=== PATIENT | female | born 1960 | race Caucasian/White ===

== ENCOUNTER 2016-02-28 22:08 | Emergency (ER) | payer OTHER ==
[~2016-02-28] VITALS: Ht 165.1 cm; Wt 145.0 kg
[~2016-02-28 22:08] MED LIST: ADVAIR 250/501 DISK IH; ADVAIR HFA120 INHALA IH; ADVIL200 MG PO; ALBUTEROL2.5 MG/3 M IH; AMLODIPINE BESY10 MG PO; APRESOLINE50 MG PO; ASPIR-LOW81 MG PO; ASPIRIN81 M2 PO; AUGMENTIN875 MG PO; BUPROPION HCL75 MG PO; BUSPAR10 MG PO; CARDIZEM CD,CA240 MG PO; CARDIZEM CD300 MG PO; CARVEDILOL25 MG PO; CARVEDILOL3.125 MG PO; CARVEDILOL6.25 MG PO; CEFTIN500 MG PO; CEFUROXIME500 MG PO; CLONAZEPAM1 MG PO; CLONIDINE HCL0.2 MG PO; CLONIDINE HCL0.3 MG PO; CLONIDINE1 EACH TD; COUMADIN2.5 MG PO; COZAAR25 MG PO; COZAAR50 MG PO; DIGOXIN125 MCG PO; DUONEB 2.5-0.5 M3 ML AEROSOL; ENDOCET 5-3251 EACH PO; FAMOTIDINE20 MG PO; FUROSEMIDE40 MG PO; GLIPIZIDE5 MG PO; GUAIFENESIN WI120 M1 PO; HYDRALAZINE HCL50 MG PO; IPRATR-ALBUTEROL3 ML AEROSOL; JANUVIA100 MG PO; KEFLEX500 MG PO; LASIX40 MG PO; LEVAQUIN500 MG PO; LEVEMIR FL100 UNITS/ SC; LEVEMIR100 UNIT/2 SC; LEVOFLOXACIN500 MG PO; LEXAPRO20 MG PO; LIPITOR40 MG PO; LISINOPRIL40 MG PO; LO-DOSE ASPIRIN81 M1 PO; LOSARTAN-HCTZ1 EAC1 PO; LUNESTA2 MG PO; MEDROL DOSEPAK4 MG PO; METFORMIN HCL500 MG PO; NORVASC10 MG PO; NOVOLOG PE100 UNITS/ SC; NYSTOP60 GM TP; ONDANSETRON ODT4 MG PO; OPANA ER10 MG PO; OPANA ER15 MG PO; OPANA ER5 MG PO; PAXIL20 MG PO; PERCOCET 10/1 TABLET PO; PERCOCET 5/31 TABLET PO; PERCOCET 7.51 TABLET PO; PRAVACHOL40 MG PO; PRAVASTATIN SOD40 MG PO; PREDNISONE20 MG PO; PREDNISONE5 MG PO; PROMETHAZINE HC25 M1 PO; PROVENTIL,2.5 MG/3 M IH; PULMICORT0.5 MG/21 AEROSOL; SPIRIVA RESPIMAT4 G1 IH; SSD25GM TP; TYLENOL WITH C1 EACH PO; VENTOLIN HFA18 GM IH; XANAX0.5 MG PO; XARELTO15 MG PO; XARELTO20 MG PO; ZOFRAN4 MG PO
[2016-02-28 22:27] VITALS: BP 185/104
[2016-02-28 23:01] LABS: HEMATOCRIT 40.9 % (36.0-46.0); MCH 30.5 PG (29.0-34.0); MCV 95.1 FL (83-99); MEAN PLAT.VOLUME 10.3 uM^3 (9.5-12.4); PLATELET COUNT 182 K/uL (156-360); RBC DIS.WIDTH-CV 14.1 % (11.8-14.6); RBC DIS.WIDTH-SD 46.2 % (39-53); WHITE BLOOD COUNT 7.1 K/uL (4.1-10.2)
[2016-02-28 23:47] LABS: CHLORIDE 107 mEq/L (99-109); POTASSIUM 4.5 mEq/L (3.7-5.4); SODIUM 144 mEq/L (136-147)
[2016-02-28 23:49] LABS: GLUCOSE 133 mg/dL (70-99)
[2016-02-28 23:50] LABS: ANION GAP 10 MEQ/L (2-14)
[2016-02-28 23:53] LABS: GFR ESTIMATE (CALCULATED) 42 mL/min/
[2016-02-28 23:54] LABS: UREA NITROGEN (BUN) 22 mg/dL (9-23)
== END 2016-02-29 03:00 | disposition left against medical advice (07) ==
LOC: EME 22:08
DX: R09.89 Other specified symptoms and signs involving the circulatory and respiratory systems (principal); Z53.21 Procedure and treatment not carried out due to patient leaving prior to being seen by health care provider
CPT/HCPCS: 80048; 85027

== ENCOUNTER 2016-11-07 00:05 | Inpatient (IN) | payer OTHER ==
[~2016-11-07] VITALS: Ht 165.1 cm; Wt 143.1 kg
[2016-11-07 01:41] LABS: HEMATOCRIT 50.9 % (36.0-46.0); MCH 29.4 PG (29.0-34.0); MCHC 31.2 G/DL (30.0-36.0); MCV 94.1 FL (83-99); MEAN PLAT.VOLUME 10.7 uM^3 (9.5-12.4); PLATELET COUNT 146 K/uL (156-360); RBC DIS.WIDTH-CV 13.5 % (11.8-14.6); RBC DIS.WIDTH-SD 46.5 % (39-53); RED BLOOD COUNT 5.41 M/uL (3.80-5.20); WHITE BLOOD COUNT 6.9 K/uL (4.1-10.2)
[2016-11-07 01:54] LABS: CHLORIDE 105 mEq/L (99-109); POTASSIUM 4.8 mEq/L (3.7-5.4); SODIUM 139 mEq/L (136-147)
[2016-11-07 01:56] LABS: GLUCOSE 118 mg/dL (70-99)
[2016-11-07 01:58] LABS: ANION GAP 10 MEQ/L (2-14)
[2016-11-07 02:00] LABS: GFR ESTIMATE (CALCULATED) > 59 mL/min/
[2016-11-07 02:01] LABS: UREA NITROGEN (BUN) 25 mg/dL (9-23)
[2016-11-07 04:06] VITALS: BP 190/114
[2016-11-07 04:20] VITALS: BP 142/80
[2016-11-07 08:06] LABS: POINT-OF-CARE METER ID UU14162513
[2016-11-07 08:15] VITALS: BP 140/74
[2016-11-07 11:47] VITALS: BP 136/72
[2016-11-07 12:03] LABS: POINT-OF-CARE METER ID UU13113831
[2016-11-07 15:54] VITALS: BP 139/74
[2016-11-07 17:39] LABS: POINT-OF-CARE METER ID UU14162513
[2016-11-07 22:05] LABS: POINT-OF-CARE METER ID UU13113700
[2016-11-07 23:20] LABS: POINT-OF-CARE METER ID UU13113831
[2016-11-08 00:03] VITALS: BP 130/81
[2016-11-08 04:19] VITALS: BP 109/67
[2016-11-08 05:33] LABS: EOSINOPHIL (%) 2.4 % (0-5); EOSINOPHIL COUNT 0.2 K/uL (0-0.3); IMMATURE GRANULOCYTE (%) 0.3 % (0.0-0.7); INSTRUMENT ABS NEUTROPHIL CT 4.1 K/uL; LYMPHOCYTE COUNT 2.1 K/uL (1.0-2.8); MCH 29.7 PG (29.0-34.0); MCHC 30.4 G/DL (30.0-36.0); MCV 97.6 FL (83-99); MEAN PLAT.VOLUME 11.5 uM^3 (9.5-12.4); MONOCYTE (%) 10.4 % (3-12); MONOCYTE COUNT 0.7 K/uL (0-0.8); NEUTROPHIL (%) 57.6 % (45-76); NEUTROPHIL COUNT 4.1 K/uL (1.8-6.4); PLATELET COUNT 146 K/uL (156-360); RBC DIS.WIDTH-CV 13.7 % (11.8-14.6); RBC DIS.WIDTH-SD 48.7 % (39-53); RED BLOOD COUNT 4.92 M/uL (3.80-5.20); WHITE BLOOD COUNT 7.1 K/uL (4.1-10.2)
[2016-11-08 08:21] LABS: POINT-OF-CARE METER ID UU13113831
[2016-11-08] MEDS ORDERED: DOXYCYCLINE HY100 MG PO (11:55)
[2016-11-08 12:26] LABS: POINT-OF-CARE METER ID UU13113700
[2016-11-08 12:45] VITALS: BP 117/61
[2016-11-08 17:22] LABS: POINT-OF-CARE METER ID UU13113700
[2016-11-08 18:00] VITALS: BP 135/61
[2016-11-08 21:30] LABS: POINT-OF-CARE METER ID UU13113831
[2016-11-09 01:07] VITALS: BP 127/65
[2016-11-09 04:49] VITALS: BP 96/62
[2016-11-09 08:03] LABS: POINT-OF-CARE METER ID UU13113700
[2016-11-09] MEDS ORDERED: OXYGEN MC (09:51)
[2016-11-09 11:23] VITALS: BP 100/64
[2016-11-09 12:20] LABS: POINT-OF-CARE METER ID UU13113700
[2016-11-09 15:30] VITALS: BP 123/75
[2016-11-09 19:27] VITALS: BP 166/84
[2016-11-09 21:36] LABS: POINT-OF-CARE METER ID UU13113831
[2016-11-09 23:45] VITALS: BP 135/65
[2016-11-10 03:24] VITALS: BP 139/78
[2016-11-10] MEDS ORDERED: OXYGEN MC (06:45)
[2016-11-10 09:19] VITALS: BP 169/79
[2016-11-10 11:58] VITALS: BP 153/74
[2016-11-10 12:42] LABS: POINT-OF-CARE METER ID UU13113700
== END 2016-11-10 16:22 | disposition home or self-care (01) | DRG 603 ==
LOC: EME 00:05 → ENRESERV 02:51 → 5WEST 03:15 → EDOF 03:15 → ENRESERV 03:24 → 5WEST 03:49 → ENRESERV 09:49 → CANRESERV 09:49 → 5WEST 09:51
PROVIDERS: Emergency Medicine; Hospitalist; Physician Assistant Medical
DX: L03.116 Cellulitis of left lower limb (principal); Z68.43 Body mass index [BMI] 50.0-59.9, adult; E66.2 Morbid (severe) obesity with alveolar hypoventilation; I13.0 Hypertensive heart and chronic kidney disease with heart failure and stage 1 through stage 4 chronic kidney disease, or unspecified chronic kidney disease; I50.32 Chronic diastolic (congestive) heart failure; J96.11 Chronic respiratory failure with hypoxia; N18.2 Chronic kidney disease, stage 2 (mild); E11.22 Type 2 diabetes mellitus with diabetic chronic kidney disease; E78.5 Hyperlipidemia, unspecified; I48.0 Paroxysmal atrial fibrillation; G89.29 Other chronic pain; J44.9 Chronic obstructive pulmonary disease, unspecified; I87.2 Venous insufficiency (chronic) (peripheral); I87.8 Other specified disorders of veins; F41.9 Anxiety disorder, unspecified; K21.9 Gastro-esophageal reflux disease without esophagitis; I25.10 Atherosclerotic heart disease of native coronary artery without angina pectoris; Z79.4 Long term (current) use of insulin; Z99.81 Dependence on supplemental oxygen; Z83.3 Family history of diabetes mellitus; Z82.49 Family history of ischemic heart disease and other diseases of the circulatory system; Z86.718 Personal history of other venous thrombosis and embolism; Z87.891 Personal history of nicotine dependence; Z93.0 Tracheostomy status; I25.2 Old myocardial infarction
CPT/HCPCS: 80048; 82948; 83605; 85025; 85027; 87040; 93970; 94640; 94640 76; 94799; 99202; 99281; 99285; J0690; J0696; J1170; J1650; J2270; J7050

== ENCOUNTER 2017-02-16 00:08 | Inpatient (IN) | payer OTHER ==
[~2017-02-16] VITALS: Ht 165.1 cm; Wt 143.1 kg
[~2017-02-16 00:08] MED LIST changes: +ADVAIR 500/501 DISK IH; +DOXYCYCLINE HY100 MG PO; +GLIPIZIDE XL10 MG PO; -GLIPIZIDE5 MG PO; +OXYGEN MC; +SPIRIVA RESPIMAT4 GM IH
[2017-02-16 01:25] LABS: HEMATOCRIT 41.5 % (36.0-46.0); HEMOGLOBIN 13.1 G/DL (11.9-15.5); MCHC 31.6 G/DL (30.0-36.0); RBC DIS.WIDTH-CV 13.4 % (11.8-14.6); RBC DIS.WIDTH-SD 46.8 % (39-53); RED BLOOD COUNT 4.37 M/uL (3.80-5.20); WHITE BLOOD COUNT 4.7 K/uL (4.1-10.2)
[2017-02-16 01:29] LABS: PLATELET COUNT 142 K/uL (156-360)
[2017-02-16 01:34] LABS: PTT 29.3 SEC (25-37)
[2017-02-16 01:36] LABS: ALBUMIN 3.8 g/dL (3.2-4.8); CHLORIDE 107 mEq/L (99-109); POTASSIUM 4.4 mEq/L (3.7-5.4); SODIUM 139 mEq/L (136-147)
[2017-02-16 01:39] LABS: GLUCOSE 143 mg/dL (70-99); TOTAL PROTEIN 7.1 g/dL (6.4-8.3)
[2017-02-16 01:41] LABS: TOTAL BILIRUBIN 0.4 mg/dL (0.0-1.0)
[2017-02-16 01:42] LABS: ALKALINE PHOSPHATASE 138 IU/L (3-129); CREATININE 1.2 mg/dL (0.6-1.3); GFR ESTIMATE (CALCULATED) 50 mL/min/
[2017-02-16 01:43] LABS: UREA NITROGEN (BUN) 22 mg/dL (9-23)
[2017-02-16 01:44] LABS: AST (GOT) 15 IU/L (2-34)
[2017-02-16 01:45] LABS: ALT (GPT) 22 IU/L (3-49)
[2017-02-16 01:46] LABS: LIPASE 16 U/L (1.0-51.0)
[2017-02-16 01:47] LABS: TROP-I INTERPRETATION NEGATIVE; TROPONIN-I 0.04 ng/mL (0.0-0.30)
[2017-02-16] MEDS ORDERED: TRADJENTA5 MG PO (12:39)
[2017-02-16] MEDS ORDERED: DILTIAZEM 24HR240 MG PO (12:42)
[2017-02-16] MEDS ORDERED: XARELTO20 MG PO (12:44)
[2017-02-16] MEDS ORDERED: CYANOCOBALAM1000 MCG PO (12:45)
[2017-02-16] MEDS ORDERED: DESYREL100 MG PO (12:45)
[2017-02-16] MEDS ORDERED: ERGOCALCIF50000 UNIT PO (12:45)
[2017-02-16] MEDS ORDERED: BRINTELLIX20 MG PO (12:46)
[2017-02-16] MEDS ORDERED: GABAPENTIN400 MG PO (12:46)
[2017-02-16] MEDS ORDERED: ALBUTEROL SULFAT2 MG PO (12:52)
[2017-02-16 18:21] VITALS: BP 209/101
[2017-02-16 23:42] VITALS: BP 212/102
[2017-02-17] VITALS (8 sets, daily range): BP systolic 142–182; BP diastolic 78–98
[2017-02-17 06:48] LABS: CHLORIDE 102 MEQ/L (99-109); CREATININE 1.4 MG/DL (0.6-1.3); GFR ESTIMATE (CALCULATED) 41 mL/min/; SODIUM 136 MEQ/L (136-147); UREA NITROGEN (BUN) 32 mg/dL (9-23)
[2017-02-17 06:54] LABS: GLUCOSE 405 mg/dL (70-99); POTASSIUM 5.3 MEQ/L (3.7-5.4)
[2017-02-17 07:07] LABS: HEMATOCRIT 40.3 % (36.0-46.0); HEMOGLOBIN 12.6 G/DL (11.9-15.5); MCH 29.2 PG (29.0-34.0); MCHC 31.3 G/DL (30.0-36.0); MCV 93.5 FL (83-99); PLATELET COUNT 181 K/uL (156-360); RBC DIS.WIDTH-CV 13.3 % (11.8-14.6); RBC DIS.WIDTH-SD 46.2 % (39-53); RED BLOOD COUNT 4.31 M/uL (3.80-5.20); WHITE BLOOD COUNT 5.9 K/uL (4.1-10.2)
[2017-02-18 04:11] VITALS: BP 131/65
[2017-02-18 05:09] LABS: BASOPHIL (%) 0 % (0-1); EOSINOPHIL (%) 0 % (0-5); HEMATOCRIT 39.5 % (36.0-46.0); IMMATURE GRANULOCYTE (%) 0.5 % (0.0-0.7); LYMPHOCYTE (%) 7.2 % (15-42); LYMPHOCYTE COUNT 0.7 K/uL (1.0-2.8); MCH 28.8 PG (29.0-34.0); MCHC 30.4 G/DL (30.0-36.0); MCV 94.7 FL (83-99); MONOCYTE (%) 4.6 % (3-12); MONOCYTE COUNT 0.5 K/uL (0-0.8); NEUTROPHIL (%) 87.7 % (45-76); NEUTROPHIL COUNT 8.9 K/uL (1.8-6.4); PLATELET COUNT 158 K/uL (156-360); RBC DIS.WIDTH-CV 13.5 % (11.8-14.6); RBC DIS.WIDTH-SD 47.3 % (39-53); RED BLOOD COUNT 4.17 M/uL (3.80-5.20); WHITE BLOOD COUNT 10.1 K/uL (4.1-10.2)
[2017-02-18 05:40] LABS: CHLORIDE 94 MEQ/L (99-109); CREATININE 1.2 MG/DL (0.6-1.3); GFR ESTIMATE (CALCULATED) 50 mL/min/; GLUCOSE 397 mg/dL (70-99); MAGNESIUM 1.8 mg/dl (1.3-2.7); POTASSIUM 4.7 MEQ/L (3.7-5.4); UREA NITROGEN (BUN) 41 mg/dL (9-23)
[2017-02-18 05:41] LABS: SODIUM 124 MEQ/L (136-147)
[2017-02-18 09:11] VITALS: BP 132/72
[2017-02-18 16:01] VITALS: BP 147/73
[2017-02-18 19:00] VITALS: BP 155/89
[2017-02-19 01:07] VITALS: BP 174/82
[2017-02-19 04:43] VITALS: BP 126/74
[2017-02-19 08:16] VITALS: BP 129/71
[2017-02-19 10:44] LABS: HEMATOCRIT 42.2 % (36.0-46.0); HEMOGLOBIN 12.8 G/DL (11.9-15.5); MCHC 30.3 G/DL (30.0-36.0); MCV 95.5 FL (83-99); PLATELET COUNT 174 K/uL (156-360); RBC DIS.WIDTH-CV 13.6 % (11.8-14.6); RBC DIS.WIDTH-SD 47.9 % (39-53); RED BLOOD COUNT 4.42 M/uL (3.80-5.20); WHITE BLOOD COUNT 10.2 K/uL (4.1-10.2)
[2017-02-19 11:19] LABS: CREATININE 1.3 MG/DL (0.6-1.3); GFR ESTIMATE (CALCULATED) 45 mL/min/; GLUCOSE 290 mg/dL (70-99); POTASSIUM 5.2 MEQ/L (3.7-5.4); UREA NITROGEN (BUN) 43 mg/dL (9-23)
[2017-02-19 11:26] LABS: CHLORIDE 106 MEQ/L (99-109); SODIUM 136 MEQ/L (136-147)
[2017-02-19 12:21] VITALS: BP 134/87
[2017-02-19 16:33] VITALS: BP 170/93
[2017-02-19 19:45] VITALS: BP 159/74
[2017-02-20 00:14] VITALS: BP 151/77
[2017-02-20 03:59] VITALS: BP 122/63
[2017-02-20 12:49] VITALS: BP 153/69
[2017-02-20 17:23] VITALS: BP 160/76
[2017-02-20 21:30] VITALS: BP 140/84
[2017-02-21 00:15] VITALS: BP 169/81
[2017-02-21 05:20] VITALS: BP 139/76
[2017-02-21 09:22] VITALS: BP 142/72
[2017-02-21 11:56] VITALS: BP 148/69
[2017-02-21 20:00] VITALS: BP 134/70
[2017-02-22 00:24] VITALS: BP 166/71
[2017-02-22 04:18] VITALS: BP 136/76
[2017-02-22 08:07] VITALS: BP 139/74
[2017-02-22 12:00] VITALS: BP 134/78
[2017-02-22 16:31] VITALS: BP 145/72
[2017-02-22 20:00] VITALS: BP 148/88
[2017-02-23 00:07] VITALS: BP 140/75
[2017-02-23 04:31] VITALS: BP 121/70
[2017-02-23 09:11] VITALS: BP 90/49
[2017-02-23 11:06] VITALS: BP 153/76
[2017-02-23 15:04] VITALS: BP 159/83
[2017-02-23 20:02] VITALS: BP 137/72
[2017-02-24 01:14] VITALS: BP 142/71
[2017-02-24 05:03] VITALS: BP 116/59
[2017-02-24 07:45] VITALS: BP 113/57
[2017-02-24 11:53] VITALS: BP 130/62
[2017-02-24] MEDS ORDERED: MUCINEX600 MG PO (12:10)
[2017-02-24] MEDS ORDERED: PREDNISONE10 MG PO (12:14)
[2017-02-24] MEDS ORDERED: OSELTAMIVIR PHO75 MG PO (12:16)
[2017-02-24 15:40] VITALS: BP 149/73
== END 2017-02-24 20:56 | disposition home health service (06) | DRG 194 ==
LOC: EME 00:08 → EDOF 03:34 → 5WEST 03:34 → ENRESERV 03:39 → 5WEST 18:02
PROVIDERS: Emergency Medicine; Hospitalist; Internal Medicine; Internal Medicine Pulmonary Disease; Nurse Practitioner Adult Health; Physician Assistant
DX: J10.1 Influenza due to other identified influenza virus with other respiratory manifestations (principal); J44.0 Chronic obstructive pulmonary disease with (acute) lower respiratory infection; J20.9 Acute bronchitis, unspecified; J44.1 Chronic obstructive pulmonary disease with (acute) exacerbation; I48.0 Paroxysmal atrial fibrillation; E78.5 Hyperlipidemia, unspecified; E66.2 Morbid (severe) obesity with alveolar hypoventilation; I25.10 Atherosclerotic heart disease of native coronary artery without angina pectoris; I13.0 Hypertensive heart and chronic kidney disease with heart failure and stage 1 through stage 4 chronic kidney disease, or unspecified chronic kidney disease; E11.22 Type 2 diabetes mellitus with diabetic chronic kidney disease; E11.65 Type 2 diabetes mellitus with hyperglycemia; G89.4 Chronic pain syndrome; K43.9 Ventral hernia without obstruction or gangrene; I89.0 Lymphedema, not elsewhere classified; F32.9 Major depressive disorder, single episode, unspecified; F41.9 Anxiety disorder, unspecified; T38.0X5A Adverse effect of glucocorticoids and synthetic analogues, initial encounter; N18.3 Chronic kidney disease, stage 3 (moderate); F11.20 Opioid dependence, uncomplicated; G62.9 Polyneuropathy, unspecified; I16.0 Hypertensive urgency; I50.9 Heart failure, unspecified; I87.2 Venous insufficiency (chronic) (peripheral); K21.9 Gastro-esophageal reflux disease without esophagitis; Z93.0 Tracheostomy status; I25.2 Old myocardial infarction; Z79.01 Long term (current) use of anticoagulants; Z83.3 Family history of diabetes mellitus; Z86.718 Personal history of other venous thrombosis and embolism; Z87.891 Personal history of nicotine dependence; Z86.73 Personal history of transient ischemic attack (TIA), and cerebral infarction without residual deficits; Z86.711 Personal history of pulmonary embolism; Z99.81 Dependence on supplemental oxygen; Z82.49 Family history of ischemic heart disease and other diseases of the circulatory system
CPT/HCPCS: 71045; 80048; 80053; 82948; 83605; 83690; 83735; 83880; 84484; 85025; 85027; 85610; 85730; 87040; 87070; 87077; 87205; 87502; 93005; 94640; 94640 76; 94799; 97530 GO; 97530 GP; 99202; 99281; 99285; J0456; J1815; J1940; J1956; J2270; J2920; J2930; J7040; J7512; J7608

== ENCOUNTER 2017-02-28 17:27 | Inpatient (IN) | payer OTHER ==
[~2017-02-28] VITALS: Ht 167.6 cm; Wt 97.0 kg
[~2017-02-28 17:27] MED LIST changes: +ALBUTEROL SULFAT2 MG PO; +BRINTELLIX20 MG PO; +CYANOCOBALAM1000 MCG PO; +DESYREL100 MG PO; +DILTIAZEM 24HR240 MG PO; +ERGOCALCIF50000 UNIT PO; +GABAPENTIN400 MG PO; +MUCINEX600 MG PO; +OSELTAMIVIR PHO75 MG PO; +PREDNISONE10 MG PO; +TRADJENTA5 MG PO
[2017-02-28 18:03] LABS: BICARBONATE 20.3 mEq/L (22-26); CARBOXY HGB 4.7 % (0-5); METHEMOGLOBIN 0 % (0-1.5); PO2 338 mm Hg (80-100)
[2017-02-28 18:04] LABS: COMMENTS - BLOOD GASES A+C+; DEVICE 980 PB; FI02 100 %; MODE AC; PCO2 64 mm Hg (35-45); PEEP 8 CM/H20; SITE RR; pH 7.11 (7.35-7.45)
[2017-02-28 18:08] LABS: MECHANICAL RATE 20 resp/min; TIDAL VOLUME 400 ML; TOTAL RESP RATE 30 resp/min
[2017-02-28 18:13] LABS: HEMATOCRIT 45.1 % (36.0-46.0); HEMOGLOBIN 13.5 G/DL (11.9-15.5); MCH 29.5 PG (29.0-34.0); MCHC 29.9 G/DL (30.0-36.0); MCV 98.5 FL (83-99); RBC DIS.WIDTH-CV 13.2 % (11.8-14.6); RBC DIS.WIDTH-SD 47.7 % (39-53); RED BLOOD COUNT 4.58 M/uL (3.80-5.20); WHITE BLOOD COUNT 22.6 K/uL (4.1-10.2)
[2017-02-28 18:21] LABS: PTT 28.1 SEC (25-37)
[2017-02-28 18:25] LABS: ALBUMIN 3.7 g/dL (3.2-4.8); CHLORIDE 103 mEq/L (99-109); POTASSIUM 5.7 mEq/L (3.7-5.4); SODIUM 138 mEq/L (136-147)
[2017-02-28 18:26] LABS: MAGNESIUM 2.2 mg/dL (1.3-2.7)
[2017-02-28 18:28] LABS: GLUCOSE 374 mg/dL (70-99); TOTAL PROTEIN 6.6 g/dL (6.4-8.3)
[2017-02-28 18:30] LABS: TOTAL BILIRUBIN 0.5 mg/dL (0.0-1.0)
[2017-02-28 18:31] LABS: ALKALINE PHOSPHATASE 123 IU/L (3-129); CREATININE 1.7 mg/dL (0.6-1.3); GFR ESTIMATE (CALCULATED) 33 mL/min/
[2017-02-28 18:32] LABS: UREA NITROGEN (BUN) 41 mg/dL (9-23)
[2017-02-28 18:33] LABS: AST (GOT) 75 IU/L (2-34)
[2017-02-28 18:34] LABS: ALT (GPT) 63 IU/L (3-49)
[2017-02-28 18:40] LABS: TROP-I INTERPRETATION NEGATIVE; TROPONIN-I 0.02 ng/mL (0.0-0.30)
[2017-02-28 18:58] LABS: PLATELET COUNT UNABLE TO REPORT K/uL (156-360)
[2017-02-28 19:17] LABS: ATYPICAL LYMPHOCYTE 3.9 %; BAND NEUTROPHILS 4.8 % (0-8.0); BASOPHILS 0.4 %; EOSINOPHIL ABS CT 0.2; EOSINOPHILS 0.9 % (0-5.0); LYMPHOCYTES 31.9 % (15.0-45.0); METAMYELOCYTES 0.9 %; MONOCYTES 4.4 % (0-9.0); PLAT.SUFFICIENCY ADEQUATE; SEG.NEUTROPHILS 52.8 % (46.0-76.0)
[2017-02-28 20:16] LABS: APPEARANCE SL.HAZY ((CLEAR)); BILIRUBIN NEGATIVE; BLOOD SMALL; COLOR YELLOW ((YELLOW)); GLUCOSE (STRIP) 50; KETONES NEGATIVE; LEUKOCYTES TRACE; NITRITE NEGATIVE; PROTEIN (STRIP) >=500; SPECIFIC GRAVITY 1.013 (1.000-1.030); UROBILINOGEN 0.2 MG/DL (0.2-1.0)
[2017-02-28 20:21] LABS: BACTERIA RARE /HPF; EPITHELIAL CELLS RARE /HPF; MUCUS TRACE /LPF; RED BLOOD CELLS 15-20 /HPF (0-5); UCUL ADDED? YES; WHITE BLOOD CELLS 30-40 /HPF (0-5)
[2017-02-28 20:24] LABS: AMPHETAMINE NEGATIVE (500 ng/mL); BARBITURATES NEGATIVE (200 ng/mL); BENZODIAZEPINES NEGATIVE (150 ng/mL); BUPRENORPHINE NEGATIVE (10 ng/mL); COCAINE NEGATIVE (150 ng/mL); METHADONE NEGATIVE (200 ng/mL); METHAMPHETAMINE NEGATIVE (500 ng/mL); OPIATES (MORPHINE) NEGATIVE (100 ng/mL); OXYCODONE PRESUMPTIVE POSITIVE (100 ng/mL); PHENCYCLIDINE NEGATIVE (25 ng/mL); PROPOXYPHENE NEGATIVE (300 ng/mL); THC CANNABINOIDS NEGATIVE (50 ng/mL); TRICYCLIC ANTIDEPRESSANTS NEGATIVE (300 ng/mL)
[2017-02-28 20:30] VITALS: BP 90/74
[2017-02-28 20:54] VITALS: BP 126/67
[2017-02-28 21:00] VITALS: BP 101/64
[2017-02-28 21:30] VITALS: BP 114/69
[2017-02-28 21:56] LABS: BASE EXCESS 0.8 mEq/L (-3 to +3); BICARBONATE 28.5 mEq/L (22-26); CARBOXY HGB 3.9 % (0-5); COMMENTS - BLOOD GASES C+; DEVICE VENT; FI02 50 %; METHEMOGLOBIN 1.7 % (0-1.5); MODE SPONT; PCO2 58 mm Hg (35-45); PO2 58 mm Hg (80-100); PRES. SUPPORT 10 CM/H2O; SITE RR; TOTAL RESP RATE 25 resp/min
[2017-02-28 21:57] LABS: PEEP 8 CM/H20
[2017-02-28 22:00] VITALS: BP 113/77
[2017-02-28 23:00] VITALS: BP 111/70
[2017-03-01] VITALS (17 sets, daily range): BP systolic 99–182; BP diastolic 64–135
[2017-03-01 06:41] LABS: CHLORIDE 102 MEQ/L (99-109); CREATININE 1.4 MG/DL (0.6-1.3); GFR ESTIMATE (CALCULATED) 41 mL/min/; POTASSIUM 5.9 MEQ/L (3.7-5.4); SODIUM 136 MEQ/L (136-147); UREA NITROGEN (BUN) 43 mg/dL (9-23)
[2017-03-01 06:49] LABS: GLUCOSE 161 mg/dL (70-99)
[2017-03-01 06:50] LABS: BASOPHIL (%) 0.2 % (0-1); BASOPHIL COUNT 0.1 K/uL (0-0.1); EOSINOPHIL (%) 0.2 % (0-5); HEMATOCRIT 41.3 % (36.0-46.0); HEMOGLOBIN 12.8 G/DL (11.9-15.5); IMMATURE GRANULOCYTE (%) 1.7 % (0.0-0.7); LYMPHOCYTE (%) 5.3 % (15-42); LYMPHOCYTE COUNT 1.2 K/uL (1.0-2.8); MCH 30.5 PG (29.0-34.0); MCV 98.3 FL (83-99); MONOCYTE (%) 6.6 % (3-12); MONOCYTE COUNT 1.4 K/uL (0-0.8); NEUTROPHIL COUNT 18.9 K/uL (1.8-6.4); RBC DIS.WIDTH-CV 13.4 % (11.8-14.6); RBC DIS.WIDTH-SD 48.1 % (39-53); WHITE BLOOD COUNT 21.9 K/uL (4.1-10.2)
[2017-03-01 07:20] LABS: PLAT.SUFFICIENCY ADEQUATE
[2017-03-01 08:15] LABS: PLATELET COUNT 202 K/uL (156-360)
[2017-03-02] VITALS (23 sets, daily range): BP systolic 83–152; BP diastolic 47–128
[2017-03-02 09:55] LABS: HEMOGLOBIN A1c (GLYCOHEMOGLOB) 7.5 % (Below 5.7)
[2017-03-03] VITALS (23 sets, daily range): BP systolic 98–150; BP diastolic 62–105
[2017-03-03 05:55] LABS: HEMATOCRIT 31.9 % (36.0-46.0); MCH 29.4 PG (29.0-34.0); MCHC 30.1 G/DL (30.0-36.0); MCV 97.9 FL (83-99); PLATELET COUNT 145 K/uL (156-360); RBC DIS.WIDTH-CV 13.3 % (11.8-14.6); RBC DIS.WIDTH-SD 47.7 % (39-53)
[2017-03-03 06:10] LABS: CHLORIDE 106 MEQ/L (99-109); GLUCOSE 155 mg/dL (70-99); MAGNESIUM 1.7 mg/dl (1.3-2.7); PHOSPHORUS 3.6 mg/dL (2.5-4.9); SODIUM 140 MEQ/L (136-147); UREA NITROGEN (BUN) 48 mg/dL (9-23)
[2017-03-03 06:17] LABS: GFR ESTIMATE (CALCULATED) 27 mL/min/; POTASSIUM 4.6 MEQ/L (3.7-5.4)
[2017-03-03 06:23] LABS: HEMOGLOBIN 9.6 G/DL (11.9-15.5); RED BLOOD COUNT 3.26 M/uL (3.80-5.20)
[2017-03-04] VITALS (24 sets, daily range): BP systolic 93–170; BP diastolic 55–105
[2017-03-04 06:45] LABS: CHLORIDE 106 MEQ/L (99-109); GFR ESTIMATE (CALCULATED) 45 mL/min/; GLUCOSE 124 mg/dL (70-99); POTASSIUM 4.8 MEQ/L (3.7-5.4); SODIUM 141 MEQ/L (136-147); UREA NITROGEN (BUN) 35 mg/dL (9-23)
[2017-03-04 06:56] LABS: CREATININE 1.3 MG/DL (0.6-1.3)
[2017-03-05] VITALS (25 sets, daily range): BP systolic 0–144; BP diastolic 0–95
[2017-03-05 15:38] LABS: BASOPHIL (%) 0 % (0-1); EOSINOPHIL (%) 0 % (0-5); HEMATOCRIT 31.9 % (36.0-46.0); HEMOGLOBIN 9.7 G/DL (11.9-15.5); IMMATURE GRANULOCYTE (%) 0.6 % (0.0-0.7); LYMPHOCYTE COUNT 0.3 K/uL (1.0-2.8); MCH 29.5 PG (29.0-34.0); MCHC 30.4 G/DL (30.0-36.0); MONOCYTE (%) 2.2 % (3-12); MONOCYTE COUNT 0.1 K/uL (0-0.8); NEUTROPHIL (%) 92.2 % (45-76); NEUTROPHIL COUNT 4.6 K/uL (1.8-6.4); PLATELET COUNT 126 K/uL (156-360); RBC DIS.WIDTH-CV 12.7 % (11.8-14.6); RBC DIS.WIDTH-SD 45.6 % (39-53); RED BLOOD COUNT 3.29 M/uL (3.80-5.20)
[2017-03-05 15:45] LABS: BASE EXCESS 0.5 mEq/L (-3 to +3); BICARBONATE 27.6 mEq/L (22-26); CARBOXY HGB 1.9 % (0-5); METHEMOGLOBIN 1.5 % (0-1.5); PCO2 56 mm Hg (35-45); PO2 60 mm Hg (80-100)
[2017-03-05 15:46] LABS: COMMENTS - BLOOD GASES A+C+; DEVICE 980 PB; FI02 60 %; MECHANICAL RATE 20 resp/min; MODE AC; PEEP 5 CM/H20; SITE LR; TIDAL VOLUME 400 ML; TOTAL RESP RATE 20 resp/min
[2017-03-05 15:47] LABS: ALBUMIN 3.3 G/DL (3.2-4.8); CHLORIDE 104 MEQ/L (99-109); MAGNESIUM 1.6 mg/dl (1.3-2.7); SODIUM 137 MEQ/L (136-147); TOTAL BILIRUBIN 0.5 MG/DL (0.0-1.0)
[2017-03-05 15:54] LABS: ALKALINE PHOSPHATASE 70 IU/L (3-129); ALT (GPT) 12 IU/L (3-49); AST (GOT) 8 IU/L (2-34); CREATININE 1.1 MG/DL (0.6-1.3); GFR ESTIMATE (CALCULATED) 55 mL/min/; GLUCOSE 221 mg/dL (70-99); PHOSPHORUS 3.6 mg/dL (2.5-4.9); TOTAL PROTEIN 6.4 G/DL (6.4-8.3); UREA NITROGEN (BUN) 38 mg/dL (9-23)
[2017-03-06] VITALS (18 sets, daily range): BP systolic 85–149; BP diastolic 53–97
[2017-03-06 05:28] LABS: BASOPHIL (%) 0.2 % (0-1); EOSINOPHIL (%) 0.2 % (0-5); HEMATOCRIT 31.3 % (36.0-46.0); HEMOGLOBIN 9.6 G/DL (11.9-15.5); IMMATURE GRANULOCYTE (%) 0.3 % (0.0-0.7); LYMPHOCYTE (%) 8.8 % (15-42); LYMPHOCYTE COUNT 0.5 K/uL (1.0-2.8); MCH 29.4 PG (29.0-34.0); MCHC 30.7 G/DL (30.0-36.0); MONOCYTE (%) 8.8 % (3-12); MONOCYTE COUNT 0.5 K/uL (0-0.8); NEUTROPHIL (%) 81.7 % (45-76); NEUTROPHIL COUNT 4.9 K/uL (1.8-6.4); PLATELET COUNT 132 K/uL (156-360); RBC DIS.WIDTH-CV 12.7 % (11.8-14.6); RBC DIS.WIDTH-SD 44.6 % (39-53); RED BLOOD COUNT 3.26 M/uL (3.80-5.20)
[2017-03-06 05:47] LABS: BICARBONATE 28.5 mEq/L (22-26); CARBOXY HGB 1.3 % (0-5); METHEMOGLOBIN 1.2 % (0-1.5); PCO2 47 mm Hg (35-45); PO2 71 mm Hg (80-100); SITE LB; pH 7.39 (7.35-7.45)
[2017-03-06 05:48] LABS: COMMENTS - BLOOD GASES C+; DEVICE VENT; FI02 60 %; MECHANICAL RATE 20 resp/min; MODE ACVC; PEEP 5 CM/H20; TIDAL VOLUME 450 ML; TOTAL RESP RATE 23 resp/min
[2017-03-06 05:53] LABS: ALBUMIN 3.2 G/DL (3.2-4.8); ALKALINE PHOSPHATASE 66 IU/L (3-129); ALT (GPT) 12 IU/L (3-49); AST (GOT) 8 IU/L (2-34); CHLORIDE 102 MEQ/L (99-109); CREATININE 1.1 MG/DL (0.6-1.3); GFR ESTIMATE (CALCULATED) 55 mL/min/; GLUCOSE 223 mg/dL (70-99); MAGNESIUM 1.8 mg/dl (1.3-2.7); PHOSPHORUS 3.5 mg/dL (2.5-4.9); POTASSIUM 4.6 MEQ/L (3.7-5.4); SODIUM 137 MEQ/L (136-147); TOTAL BILIRUBIN 0.5 MG/DL (0.0-1.0); TOTAL PROTEIN 5.7 G/DL (6.4-8.3); UREA NITROGEN (BUN) 40 mg/dL (9-23)
[2017-03-07] VITALS (22 sets, daily range): BP systolic 0–143; BP diastolic 0–101
[2017-03-07 06:36] LABS: BASOPHIL (%) 0.2 % (0-1); EOSINOPHIL COUNT 0.1 K/uL (0-0.3); HEMATOCRIT 29.3 % (36.0-46.0); HEMOGLOBIN 8.9 G/DL (11.9-15.5); IMMATURE GRANULOCYTE (%) 0.5 % (0.0-0.7); LYMPHOCYTE (%) 24.4 % (15-42); LYMPHOCYTE COUNT 1.6 K/uL (1.0-2.8); MCH 29.3 PG (29.0-34.0); MCHC 30.4 G/DL (30.0-36.0); MCV 96.4 FL (83-99); MONOCYTE COUNT 0.5 K/uL (0-0.8); NEUTROPHIL (%) 64.9 % (45-76); NEUTROPHIL COUNT 4.3 K/uL (1.8-6.4); PLATELET COUNT 133 K/uL (156-360); RBC DIS.WIDTH-CV 13.1 % (11.8-14.6); RBC DIS.WIDTH-SD 45.8 % (39-53); RED BLOOD COUNT 3.04 M/uL (3.80-5.20); WHITE BLOOD COUNT 6.6 K/uL (4.1-10.2)
[2017-03-07 07:04] LABS: ALBUMIN 3.1 G/DL (3.2-4.8); ALKALINE PHOSPHATASE 63 IU/L (3-129); ALT (GPT) 11 IU/L (3-49); AST (GOT) 9 IU/L (2-34); CHLORIDE 104 MEQ/L (99-109); CREATININE 1.3 MG/DL (0.6-1.3); GFR ESTIMATE (CALCULATED) 45 mL/min/; GLUCOSE 161 mg/dL (70-99); MAGNESIUM 1.8 mg/dl (1.3-2.7); PHOSPHORUS 3.3 mg/dL (2.5-4.9); POTASSIUM 4.6 MEQ/L (3.7-5.4); SODIUM 140 MEQ/L (136-147); TOTAL BILIRUBIN 0.5 MG/DL (0.0-1.0); TOTAL PROTEIN 5.4 G/DL (6.4-8.3); UREA NITROGEN (BUN) 50 mg/dL (9-23)
[2017-03-08] VITALS (21 sets, daily range): BP systolic 84–149; BP diastolic 53–117
[2017-03-08 05:06] LABS: BASOPHIL (%) 0.3 % (0-1); EOSINOPHIL (%) 2.8 % (0-5); EOSINOPHIL COUNT 0.2 K/uL (0-0.3); HEMATOCRIT 29.6 % (36.0-46.0); HEMOGLOBIN 9.4 G/DL (11.9-15.5); IMMATURE GRANULOCYTE (%) 0.5 % (0.0-0.7); LYMPHOCYTE (%) 31.6 % (15-42); LYMPHOCYTE COUNT 1.8 K/uL (1.0-2.8); MCH 30.5 PG (29.0-34.0); MCHC 31.8 G/DL (30.0-36.0); MCV 96.1 FL (83-99); MONOCYTE (%) 10.7 % (3-12); MONOCYTE COUNT 0.6 K/uL (0-0.8); NEUTROPHIL (%) 54.1 % (45-76); NEUTROPHIL COUNT 3.1 K/uL (1.8-6.4); PLATELET COUNT 129 K/uL (156-360); RBC DIS.WIDTH-CV 13.2 % (11.8-14.6); RBC DIS.WIDTH-SD 46.5 % (39-53); RED BLOOD COUNT 3.08 M/uL (3.80-5.20); WHITE BLOOD COUNT 5.7 K/uL (4.1-10.2)
[2017-03-08 05:33] LABS: ALBUMIN 3.2 G/DL (3.2-4.8); ALKALINE PHOSPHATASE 75 IU/L (3-129); ALT (GPT) 9 IU/L (3-49); AST (GOT) 9 IU/L (2-34); CHLORIDE 100 MEQ/L (99-109); CREATININE 1.1 MG/DL (0.6-1.3); GFR ESTIMATE (CALCULATED) 55 mL/min/; GLUCOSE 145 mg/dL (70-99); MAGNESIUM 1.8 mg/dl (1.3-2.7); PHOSPHORUS 3.4 mg/dL (2.5-4.9); POTASSIUM 4.3 MEQ/L (3.7-5.4); SODIUM 134 MEQ/L (136-147); TOTAL BILIRUBIN 0.6 MG/DL (0.0-1.0); TOTAL PROTEIN 5.6 G/DL (6.4-8.3); UREA NITROGEN (BUN) 51 mg/dL (9-23)
[2017-03-09] VITALS (18 sets, daily range): BP systolic 94–181; BP diastolic 59–107
[2017-03-09 05:03] LABS: BASOPHIL (%) 0.3 % (0-1); EOSINOPHIL COUNT 0.2 K/uL (0-0.3); HEMATOCRIT 31.3 % (36.0-46.0); HEMOGLOBIN 9.7 G/DL (11.9-15.5); IMMATURE GRANULOCYTE (%) 0.5 % (0.0-0.7); LYMPHOCYTE (%) 33.3 % (15-42); MCH 30.1 PG (29.0-34.0); MCV 97.2 FL (83-99); MONOCYTE (%) 10.4 % (3-12); MONOCYTE COUNT 0.6 K/uL (0-0.8); NEUTROPHIL (%) 51.5 % (45-76); NEUTROPHIL COUNT 3.1 K/uL (1.8-6.4); PLATELET COUNT 142 K/uL (156-360); RBC DIS.WIDTH-CV 13.2 % (11.8-14.6); RBC DIS.WIDTH-SD 46.8 % (39-53); RED BLOOD COUNT 3.22 M/uL (3.80-5.20)
[2017-03-09 06:25] LABS: ALBUMIN 3.3 G/DL (3.2-4.8); ALKALINE PHOSPHATASE 86 IU/L (3-129); ALT (GPT) 11 IU/L (3-49); AST (GOT) 13 IU/L (2-34); CHLORIDE 103 MEQ/L (99-109); CREATININE 1.2 MG/DL (0.6-1.3); GFR ESTIMATE (CALCULATED) 50 mL/min/; GLUCOSE 149 mg/dL (70-99); MAGNESIUM 1.9 mg/dl (1.3-2.7); PHOSPHORUS 4.2 mg/dL (2.5-4.9); POTASSIUM 4.7 MEQ/L (3.7-5.4); SODIUM 141 MEQ/L (136-147); TOTAL BILIRUBIN 0.7 MG/DL (0.0-1.0); TOTAL PROTEIN 5.6 G/DL (6.4-8.3); UREA NITROGEN (BUN) 40 mg/dL (9-23)
[2017-03-10] VITALS (17 sets, daily range): BP systolic 89–159; BP diastolic 71–96
[2017-03-10 05:59] LABS: BASOPHIL (%) 0.4 % (0-1); EOSINOPHIL (%) 4.4 % (0-5); EOSINOPHIL COUNT 0.2 K/uL (0-0.3); HEMATOCRIT 38.4 % (36.0-46.0); HEMOGLOBIN 11.6 G/DL (11.9-15.5); LYMPHOCYTE (%) 21.9 % (15-42); LYMPHOCYTE COUNT 1.2 K/uL (1.0-2.8); MCH 29.1 PG (29.0-34.0); MCHC 30.2 G/DL (30.0-36.0); MCV 96.2 FL (83-99); MONOCYTE (%) 8.8 % (3-12); MONOCYTE COUNT 0.5 K/uL (0-0.8); NEUTROPHIL (%) 63.5 % (45-76); NEUTROPHIL COUNT 3.3 K/uL (1.8-6.4); PLATELET COUNT 166 K/uL (156-360); RBC DIS.WIDTH-SD 45.7 % (39-53); WHITE BLOOD COUNT 5.2 K/uL (4.1-10.2)
[2017-03-10 06:01] LABS: RED BLOOD COUNT 3.99 M/uL (3.80-5.20)
[2017-03-10 06:12] LABS: ALBUMIN 3.9 G/DL (3.2-4.8); ALKALINE PHOSPHATASE 106 IU/L (3-129); ALT (GPT) 15 IU/L (3-49); AST (GOT) 18 IU/L (2-34); CHLORIDE 101 MEQ/L (99-109); CREATININE 1.3 MG/DL (0.6-1.3); GFR ESTIMATE (CALCULATED) 45 mL/min/; GLUCOSE 158 mg/dL (70-99); MAGNESIUM 1.7 mg/dl (1.3-2.7); PHOSPHORUS 3.9 mg/dL (2.5-4.9); POTASSIUM 4.9 MEQ/L (3.7-5.4); SODIUM 142 MEQ/L (136-147); UREA NITROGEN (BUN) 38 mg/dL (9-23)
[2017-03-10 06:14] LABS: TOTAL BILIRUBIN 0.9 MG/DL (0.0-1.0); TOTAL PROTEIN 6.7 G/DL (6.4-8.3)
[2017-03-10 11:42] LABS: BICARBONATE 32.1 mEq/L (22-26); CARBOXY HGB 2.4 % (0-5); METHEMOGLOBIN 1.6 % (0-1.5); PCO2 53 mm Hg (35-45); PO2 59 mm Hg (80-100); pH 7.39 (7.35-7.45)
[2017-03-10 11:43] LABS: COMMENTS - BLOOD GASES A+C+; SITE RR; TOTAL RESP RATE 16 resp/min
[2017-03-10 12:21] LABS: BASOPHIL (%) 0.4 % (0-1); EOSINOPHIL (%) 5.5 % (0-5); EOSINOPHIL COUNT 0.3 K/uL (0-0.3); HEMATOCRIT 34.2 % (36.0-46.0); HEMOGLOBIN 10.5 G/DL (11.9-15.5); IMMATURE GRANULOCYTE (%) 0.8 % (0.0-0.7); LYMPHOCYTE (%) 27.5 % (15-42); LYMPHOCYTE COUNT 1.5 K/uL (1.0-2.8); MCH 29.7 PG (29.0-34.0); MCHC 30.7 G/DL (30.0-36.0); MCV 96.6 FL (83-99); MONOCYTE (%) 10.2 % (3-12); MONOCYTE COUNT 0.5 K/uL (0-0.8); NEUTROPHIL (%) 55.6 % (45-76); NEUTROPHIL COUNT 2.9 K/uL (1.8-6.4); PLATELET COUNT 166 K/uL (156-360); RBC DIS.WIDTH-SD 46.1 % (39-53); RED BLOOD COUNT 3.54 M/uL (3.80-5.20); WHITE BLOOD COUNT 5.3 K/uL (4.1-10.2)
[2017-03-10 12:39] LABS: CHLORIDE 102 MEQ/L (99-109); POTASSIUM 4.7 MEQ/L (3.7-5.4); SODIUM 139 MEQ/L (136-147)
[2017-03-10 12:45] LABS: CREATININE 1.1 MG/DL (0.6-1.3); GFR ESTIMATE (CALCULATED) 55 mL/min/; GLUCOSE 168 mg/dL (70-99); UREA NITROGEN (BUN) 39 mg/dL (9-23)
[2017-03-11] VITALS (13 sets, daily range): BP systolic 104–149; BP diastolic 55–106
[2017-03-11 05:37] LABS: BASOPHIL (%) 0.4 % (0-1); EOSINOPHIL (%) 4.6 % (0-5); EOSINOPHIL COUNT 0.3 K/uL (0-0.3); HEMATOCRIT 38.6 % (36.0-46.0); IMMATURE GRANULOCYTE (%) 0.7 % (0.0-0.7); LYMPHOCYTE (%) 29.6 % (15-42); LYMPHOCYTE COUNT 1.7 K/uL (1.0-2.8); MCH 30.1 PG (29.0-34.0); MCHC 31.1 G/DL (30.0-36.0); MCV 96.7 FL (83-99); MONOCYTE (%) 10.8 % (3-12); MONOCYTE COUNT 0.6 K/uL (0-0.8); NEUTROPHIL (%) 53.9 % (45-76); NEUTROPHIL COUNT 3.1 K/uL (1.8-6.4); PLATELET COUNT 181 K/uL (156-360); RBC DIS.WIDTH-CV 13.1 % (11.8-14.6); RBC DIS.WIDTH-SD 46.1 % (39-53); RED BLOOD COUNT 3.99 M/uL (3.80-5.20); WHITE BLOOD COUNT 5.7 K/uL (4.1-10.2)
[2017-03-11 06:09] LABS: ALBUMIN 3.8 G/DL (3.2-4.8); ALKALINE PHOSPHATASE 107 IU/L (3-129); ALT (GPT) 14 IU/L (3-49); AST (GOT) 14 IU/L (2-34); CHLORIDE 102 MEQ/L (99-109); CREATININE 1.2 MG/DL (0.6-1.3); GFR ESTIMATE (CALCULATED) 50 mL/min/; GLUCOSE 150 mg/dL (70-99); MAGNESIUM 1.7 mg/dl (1.3-2.7); PHOSPHORUS 3.9 mg/dL (2.5-4.9); SODIUM 141 MEQ/L (136-147); TOTAL BILIRUBIN 0.8 MG/DL (0.0-1.0); TOTAL PROTEIN 6.5 G/DL (6.4-8.3); UREA NITROGEN (BUN) 33 mg/dL (9-23)
[2017-03-11 11:17] LABS: BASOPHIL (%) 0.5 % (0-1); EOSINOPHIL (%) 3.6 % (0-5); EOSINOPHIL COUNT 0.2 K/uL (0-0.3); HEMOGLOBIN 12.1 G/DL (11.9-15.5); IMMATURE GRANULOCYTE (%) 0.8 % (0.0-0.7); LYMPHOCYTE (%) 21.3 % (15-42); LYMPHOCYTE COUNT 1.3 K/uL (1.0-2.8); MCH 29.4 PG (29.0-34.0); MCV 94.9 FL (83-99); MONOCYTE (%) 9.2 % (3-12); MONOCYTE COUNT 0.6 K/uL (0-0.8); NEUTROPHIL (%) 64.6 % (45-76); PLATELET COUNT 166 K/uL (156-360); RBC DIS.WIDTH-SD 45.1 % (39-53); RED BLOOD COUNT 4.11 M/uL (3.80-5.20); WHITE BLOOD COUNT 6.1 K/uL (4.1-10.2)
[2017-03-11 11:31] LABS: CHLORIDE 104 MEQ/L (99-109); POTASSIUM 4.9 MEQ/L (3.7-5.4); SODIUM 139 MEQ/L (136-147)
[2017-03-11 11:37] LABS: CREATININE 1.2 MG/DL (0.6-1.3); GFR ESTIMATE (CALCULATED) 50 mL/min/; UREA NITROGEN (BUN) 36 mg/dL (9-23)
[2017-03-11 11:51] LABS: GLUCOSE 226 mg/dL (70-99)
[2017-03-12] VITALS (7 sets, daily range): BP systolic 92–127; BP diastolic 59–86
[2017-03-12 05:53] LABS: BASOPHIL (%) 0.4 % (0-1); EOSINOPHIL (%) 4.9 % (0-5); EOSINOPHIL COUNT 0.4 K/uL (0-0.3); HEMOGLOBIN 11.5 G/DL (11.9-15.5); LYMPHOCYTE (%) 37.4 % (15-42); LYMPHOCYTE COUNT 2.7 K/uL (1.0-2.8); MCH 29.5 PG (29.0-34.0); MCHC 30.3 G/DL (30.0-36.0); MCV 97.4 FL (83-99); MONOCYTE (%) 13.6 % (3-12); NEUTROPHIL (%) 42.7 % (45-76); NEUTROPHIL COUNT 3.1 K/uL (1.8-6.4); PLATELET COUNT 191 K/uL (156-360); RBC DIS.WIDTH-CV 13.2 % (11.8-14.6); RBC DIS.WIDTH-SD 46.3 % (39-53); WHITE BLOOD COUNT 7.3 K/uL (4.1-10.2)
[2017-03-12 06:15] LABS: ALBUMIN 3.7 G/DL (3.2-4.8); ALKALINE PHOSPHATASE 119 IU/L (3-129); ALT (GPT) 12 IU/L (3-49); AST (GOT) 13 IU/L (2-34); CHLORIDE 105 MEQ/L (99-109); CREATININE 1.5 MG/DL (0.6-1.3); GFR ESTIMATE (CALCULATED) 38 mL/min/; GLUCOSE 139 mg/dL (70-99); MAGNESIUM 1.8 mg/dl (1.3-2.7); PHOSPHORUS 4.2 mg/dL (2.5-4.9); POTASSIUM 5.1 MEQ/L (3.7-5.4); SODIUM 143 MEQ/L (136-147); TOTAL BILIRUBIN 0.8 MG/DL (0.0-1.0); TOTAL PROTEIN 6.4 G/DL (6.4-8.3); UREA NITROGEN (BUN) 40 mg/dL (9-23)
[2017-03-12 11:02] LABS: BASOPHIL (%) 0.4 % (0-1); EOSINOPHIL (%) 5.5 % (0-5); EOSINOPHIL COUNT 0.3 K/uL (0-0.3); HEMATOCRIT 36.7 % (36.0-46.0); HEMOGLOBIN 11.3 G/DL (11.9-15.5); IMMATURE GRANULOCYTE (%) 0.8 % (0.0-0.7); LYMPHOCYTE (%) 29.1 % (15-42); LYMPHOCYTE COUNT 1.5 K/uL (1.0-2.8); MCH 30.1 PG (29.0-34.0); MCHC 30.8 G/DL (30.0-36.0); MCV 97.6 FL (83-99); MONOCYTE (%) 11.5 % (3-12); MONOCYTE COUNT 0.6 K/uL (0-0.8); NEUTROPHIL (%) 52.7 % (45-76); NEUTROPHIL COUNT 2.8 K/uL (1.8-6.4); PLATELET COUNT 177 K/uL (156-360); RBC DIS.WIDTH-CV 13.3 % (11.8-14.6); RBC DIS.WIDTH-SD 47.2 % (39-53); RED BLOOD COUNT 3.76 M/uL (3.80-5.20); WHITE BLOOD COUNT 5.3 K/uL (4.1-10.2)
[2017-03-12 11:25] LABS: CHLORIDE 102 MEQ/L (99-109); CREATININE 1.6 MG/DL (0.6-1.3); GFR ESTIMATE (CALCULATED) 36 mL/min/; POTASSIUM 4.8 MEQ/L (3.7-5.4); SODIUM 140 MEQ/L (136-147); UREA NITROGEN (BUN) 40 mg/dL (9-23)
[2017-03-12 11:26] LABS: GLUCOSE 222 mg/dL (70-99)
[2017-03-13] VITALS: BP 113/80
[2017-03-13 04:30] VITALS: BP 95/84
[2017-03-13 06:48] LABS: ALBUMIN 3.6 G/DL (3.2-4.8); ALKALINE PHOSPHATASE 114 IU/L (3-129); ALT (GPT) 14 IU/L (3-49); AST (GOT) 13 IU/L (2-34); CHLORIDE 101 MEQ/L (99-109); CREATININE 1.8 MG/DL (0.6-1.3); GFR ESTIMATE (CALCULATED) 31 mL/min/; GLUCOSE 151 mg/dL (70-99); PHOSPHORUS 4.3 mg/dL (2.5-4.9); POTASSIUM 4.6 MEQ/L (3.7-5.4); SODIUM 142 MEQ/L (136-147); TOTAL BILIRUBIN 0.7 MG/DL (0.0-1.0); UREA NITROGEN (BUN) 43 mg/dL (9-23)
[2017-03-13 08:50] LABS: BASOPHIL (%) 0.5 % (0-1); EOSINOPHIL (%) 5.2 % (0-5); EOSINOPHIL COUNT 0.3 K/uL (0-0.3); HEMOGLOBIN 11.3 G/DL (11.9-15.5); IMMATURE GRANULOCYTE (%) 0.8 % (0.0-0.7); LYMPHOCYTE (%) 36.3 % (15-42); LYMPHOCYTE COUNT 2.2 K/uL (1.0-2.8); MCHC 30.5 G/DL (30.0-36.0); MCV 98.1 FL (83-99); MONOCYTE (%) 12.2 % (3-12); MONOCYTE COUNT 0.8 K/uL (0-0.8); NEUTROPHIL COUNT 2.8 K/uL (1.8-6.4); PLATELET COUNT 190 K/uL (156-360); RBC DIS.WIDTH-CV 13.2 % (11.8-14.6); RBC DIS.WIDTH-SD 47.3 % (39-53); RED BLOOD COUNT 3.77 M/uL (3.80-5.20); WHITE BLOOD COUNT 6.1 K/uL (4.1-10.2)
[2017-03-13 09:00] VITALS: BP 112/68
[2017-03-13 12:00] VITALS: BP 144/57
[2017-03-13 19:04] VITALS: BP 160/87
[2017-03-14] VITALS (7 sets, daily range): BP systolic 93–147; BP diastolic 49–88
[2017-03-14 05:50] LABS: BASOPHIL (%) 0.5 % (0-1); EOSINOPHIL (%) 6.1 % (0-5); EOSINOPHIL COUNT 0.4 K/uL (0-0.3); HEMATOCRIT 34.5 % (36.0-46.0); HEMOGLOBIN 10.3 G/DL (11.9-15.5); IMMATURE GRANULOCYTE (%) 0.7 % (0.0-0.7); LYMPHOCYTE (%) 38.5 % (15-42); LYMPHOCYTE COUNT 2.2 K/uL (1.0-2.8); MCH 29.2 PG (29.0-34.0); MCHC 29.9 G/DL (30.0-36.0); MCV 97.7 FL (83-99); MONOCYTE (%) 14.9 % (3-12); MONOCYTE COUNT 0.9 K/uL (0-0.8); NEUTROPHIL (%) 39.3 % (45-76); NEUTROPHIL COUNT 2.3 K/uL (1.8-6.4); PLATELET COUNT 184 K/uL (156-360); RBC DIS.WIDTH-CV 13.2 % (11.8-14.6); RBC DIS.WIDTH-SD 47.2 % (39-53); RED BLOOD COUNT 3.53 M/uL (3.80-5.20); WHITE BLOOD COUNT 5.8 K/uL (4.1-10.2)
[2017-03-14 06:33] LABS: ALBUMIN 3.4 G/DL (3.2-4.8); ALKALINE PHOSPHATASE 117 IU/L (3-129); ALT (GPT) 12 IU/L (3-49); AST (GOT) 13 IU/L (2-34); CHLORIDE 103 MEQ/L (99-109); CREATININE 2.3 MG/DL (0.6-1.3); GFR ESTIMATE (CALCULATED) 23 mL/min/; GLUCOSE 161 mg/dL (70-99); MAGNESIUM 2.3 mg/dl (1.3-2.7); PHOSPHORUS 4.9 mg/dL (2.5-4.9); POTASSIUM 4.8 MEQ/L (3.7-5.4); SODIUM 140 MEQ/L (136-147); TOTAL BILIRUBIN 0.6 MG/DL (0.0-1.0); TOTAL PROTEIN 5.8 G/DL (6.4-8.3); UREA NITROGEN (BUN) 47 mg/dL (9-23)
[2017-03-14 11:48] LABS: BASE EXCESS 2.4 mEq/L (-3 to +3); BICARBONATE 29.4 mEq/L (22-26); CARBOXY HGB 1.7 % (0-5); COMMENTS - BLOOD GASES A+C+; DEVICE TC; FI02 70 %; METHEMOGLOBIN 1.2 % (0-1.5); O2 FLOW 8 L/MIN; PCO2 57 mm Hg (35-45); PO2 61 mm Hg (80-100); SITE RR; pH 7.32 (7.35-7.45)
[2017-03-14 11:53] LABS: BASOPHIL (%) 0.4 % (0-1); EOSINOPHIL (%) 4.7 % (0-5); EOSINOPHIL COUNT 0.2 K/uL (0-0.3); HEMATOCRIT 34.9 % (36.0-46.0); HEMOGLOBIN 10.6 G/DL (11.9-15.5); IMMATURE GRANULOCYTE (%) 0.8 % (0.0-0.7); LYMPHOCYTE (%) 31.6 % (15-42); LYMPHOCYTE COUNT 1.6 K/uL (1.0-2.8); MCH 29.8 PG (29.0-34.0); MCHC 30.4 G/DL (30.0-36.0); MONOCYTE (%) 12.9 % (3-12); MONOCYTE COUNT 0.7 K/uL (0-0.8); NEUTROPHIL (%) 49.6 % (45-76); NEUTROPHIL COUNT 2.5 K/uL (1.8-6.4); PLATELET COUNT 159 K/uL (156-360); RBC DIS.WIDTH-CV 13.2 % (11.8-14.6); RBC DIS.WIDTH-SD 46.9 % (39-53); RED BLOOD COUNT 3.56 M/uL (3.80-5.20); WHITE BLOOD COUNT 5.1 K/uL (4.1-10.2)
[2017-03-14 12:11] LABS: CHLORIDE 107 MEQ/L (99-109); POTASSIUM 4.9 MEQ/L (3.7-5.4); SODIUM 141 MEQ/L (136-147)
[2017-03-14 12:17] LABS: CREATININE 2.1 MG/DL (0.6-1.3); GFR ESTIMATE (CALCULATED) 26 mL/min/; GLUCOSE 144 mg/dL (70-99); UREA NITROGEN (BUN) 49 mg/dL (9-23)
[2017-03-15 03:27] VITALS: BP 101/59
[2017-03-15 05:46] LABS: BASOPHIL (%) 0.2 % (0-1); EOSINOPHIL (%) 4.2 % (0-5); EOSINOPHIL COUNT 0.2 K/uL (0-0.3); HEMATOCRIT 34.1 % (36.0-46.0); HEMOGLOBIN 10.4 G/DL (11.9-15.5); IMMATURE GRANULOCYTE (%) 0.6 % (0.0-0.7); LYMPHOCYTE COUNT 1.5 K/uL (1.0-2.8); MCH 30.1 PG (29.0-34.0); MCHC 30.5 G/DL (30.0-36.0); MCV 98.8 FL (83-99); MONOCYTE (%) 13.5 % (3-12); MONOCYTE COUNT 0.7 K/uL (0-0.8); NEUTROPHIL (%) 52.5 % (45-76); NEUTROPHIL COUNT 2.7 K/uL (1.8-6.4); PLATELET COUNT 170 K/uL (156-360); RBC DIS.WIDTH-CV 13.2 % (11.8-14.6); RBC DIS.WIDTH-SD 47.6 % (39-53); RED BLOOD COUNT 3.45 M/uL (3.80-5.20); WHITE BLOOD COUNT 5.2 K/uL (4.1-10.2)
[2017-03-15 06:09] LABS: ALBUMIN 3.3 G/DL (3.2-4.8); ALKALINE PHOSPHATASE 119 IU/L (3-129); ALT (GPT) 11 IU/L (3-49); AST (GOT) 10 IU/L (2-34); CHLORIDE 106 MEQ/L (99-109); CREATININE 1.8 MG/DL (0.6-1.3); GFR ESTIMATE (CALCULATED) 31 mL/min/; GLUCOSE 146 mg/dL (70-99); MAGNESIUM 2.2 mg/dl (1.3-2.7); PHOSPHORUS 3.7 mg/dL (2.5-4.9); POTASSIUM 5.1 MEQ/L (3.7-5.4); SODIUM 140 MEQ/L (136-147); TOTAL BILIRUBIN 0.5 MG/DL (0.0-1.0); TOTAL PROTEIN 5.9 G/DL (6.4-8.3); UREA NITROGEN (BUN) 45 mg/dL (9-23)
[2017-03-15 08:36] VITALS: BP 108/52
[2017-03-15 10:56] LABS: BASOPHIL (%) 0.4 % (0-1); EOSINOPHIL (%) 4.4 % (0-5); EOSINOPHIL COUNT 0.2 K/uL (0-0.3); HEMATOCRIT 35.3 % (36.0-46.0); HEMOGLOBIN 10.7 G/DL (11.9-15.5); IMMATURE GRANULOCYTE (%) 0.7 % (0.0-0.7); LYMPHOCYTE (%) 25.9 % (15-42); LYMPHOCYTE COUNT 1.2 K/uL (1.0-2.8); MCH 29.8 PG (29.0-34.0); MCHC 30.3 G/DL (30.0-36.0); MCV 98.3 FL (83-99); MONOCYTE (%) 11.3 % (3-12); MONOCYTE COUNT 0.5 K/uL (0-0.8); NEUTROPHIL (%) 57.3 % (45-76); NEUTROPHIL COUNT 2.6 K/uL (1.8-6.4); PLATELET COUNT 162 K/uL (156-360); RBC DIS.WIDTH-CV 13.1 % (11.8-14.6); RBC DIS.WIDTH-SD 46.6 % (39-53); RED BLOOD COUNT 3.59 M/uL (3.80-5.20); WHITE BLOOD COUNT 4.6 K/uL (4.1-10.2)
[2017-03-15 12:01] VITALS: BP 135/73
[2017-03-15 12:20] LABS: CHLORIDE 108 MEQ/L (99-109); CREATININE 1.7 MG/DL (0.6-1.3); GFR ESTIMATE (CALCULATED) 33 mL/min/; GLUCOSE 151 mg/dL (70-99); POTASSIUM 5.4 MEQ/L (3.7-5.4); SODIUM 141 MEQ/L (136-147); UREA NITROGEN (BUN) 44 mg/dL (9-23)
[2017-03-15 16:01] VITALS: BP 156/64
[2017-03-15 19:34] VITALS: BP 136/82
[2017-03-16] VITALS: BP 137/71
[2017-03-16 04:06] VITALS: BP 133/71
[2017-03-16 07:31] VITALS: BP 138/90
[2017-03-16 10:58] LABS: BASOPHIL (%) 0.5 % (0-1); EOSINOPHIL (%) 4.3 % (0-5); EOSINOPHIL COUNT 0.2 K/uL (0-0.3); HEMATOCRIT 35.2 % (36.0-46.0); HEMOGLOBIN 10.6 G/DL (11.9-15.5); IMMATURE GRANULOCYTE (%) 0.7 % (0.0-0.7); LYMPHOCYTE (%) 29.8 % (15-42); LYMPHOCYTE COUNT 1.3 K/uL (1.0-2.8); MCH 29.9 PG (29.0-34.0); MCHC 30.1 G/DL (30.0-36.0); MCV 99.4 FL (83-99); MONOCYTE (%) 11.1 % (3-12); MONOCYTE COUNT 0.5 K/uL (0-0.8); NEUTROPHIL (%) 53.6 % (45-76); NEUTROPHIL COUNT 2.4 K/uL (1.8-6.4); PLATELET COUNT 153 K/uL (156-360); RBC DIS.WIDTH-CV 13.2 % (11.8-14.6); RBC DIS.WIDTH-SD 47.9 % (39-53); RED BLOOD COUNT 3.54 M/uL (3.80-5.20); WHITE BLOOD COUNT 4.4 K/uL (4.1-10.2)
[2017-03-16 11:14] LABS: CHLORIDE 107 MEQ/L (99-109); SODIUM 142 MEQ/L (136-147)
[2017-03-16 11:19] LABS: CREATININE 1.5 MG/DL (0.6-1.3); GFR ESTIMATE (CALCULATED) 38 mL/min/; GLUCOSE 204 mg/dL (70-99); UREA NITROGEN (BUN) 35 mg/dL (9-23)
[2017-03-16 12:04] VITALS: BP 128/83
[2017-03-16 15:47] VITALS: BP 138/85
[2017-03-16 20:19] VITALS: BP 135/82
[2017-03-17] VITALS (7 sets, daily range): BP systolic 133–142; BP diastolic 73–90
[2017-03-17 07:17] LABS: CHLORIDE 107 MEQ/L (99-109); CREATININE 1.6 MG/DL (0.6-1.3); GFR ESTIMATE (CALCULATED) 36 mL/min/; GLUCOSE 136 mg/dL (70-99); SODIUM 141 MEQ/L (136-147); UREA NITROGEN (BUN) 31 mg/dL (9-23)
[2017-03-17 07:19] LABS: BASOPHIL (%) 0.4 % (0-1); EOSINOPHIL (%) 5.5 % (0-5); EOSINOPHIL COUNT 0.3 K/uL (0-0.3); HEMATOCRIT 35.8 % (36.0-46.0); HEMOGLOBIN 10.9 G/DL (11.9-15.5); IMMATURE GRANULOCYTE (%) 0.9 % (0.0-0.7); LYMPHOCYTE (%) 29.9 % (15-42); LYMPHOCYTE COUNT 1.7 K/uL (1.0-2.8); MCH 29.5 PG (29.0-34.0); MCHC 30.4 G/DL (30.0-36.0); MCV 96.8 FL (83-99); MONOCYTE (%) 11.4 % (3-12); MONOCYTE COUNT 0.6 K/uL (0-0.8); NEUTROPHIL (%) 51.9 % (45-76); NEUTROPHIL COUNT 2.9 K/uL (1.8-6.4); PLATELET COUNT 174 K/uL (156-360); RBC DIS.WIDTH-CV 13.1 % (11.8-14.6); RBC DIS.WIDTH-SD 45.6 % (39-53); WHITE BLOOD COUNT 5.6 K/uL (4.1-10.2)
[2017-03-18 07:36] VITALS: BP 132/74
[2017-03-18 11:04] LABS: CHLORIDE 104 MEQ/L (99-109); POTASSIUM 4.9 MEQ/L (3.7-5.4); SODIUM 140 MEQ/L (136-147)
[2017-03-18 11:10] LABS: CREATININE 1.8 MG/DL (0.6-1.3); GFR ESTIMATE (CALCULATED) 31 mL/min/; GLUCOSE 176 mg/dL (70-99); UREA NITROGEN (BUN) 35 mg/dL (9-23)
[2017-03-18 11:17] LABS: BASOPHIL (%) 0.7 % (0-1); BASOPHIL COUNT 0.1 K/uL (0-0.1); EOSINOPHIL (%) 5.6 % (0-5); EOSINOPHIL COUNT 0.4 K/uL (0-0.3); HEMATOCRIT 35.6 % (36.0-46.0); HEMOGLOBIN 10.9 G/DL (11.9-15.5); IMMATURE GRANULOCYTE (%) 0.7 % (0.0-0.7); LYMPHOCYTE (%) 30.3 % (15-42); LYMPHOCYTE COUNT 2.2 K/uL (1.0-2.8); MCH 29.9 PG (29.0-34.0); MCHC 30.6 G/DL (30.0-36.0); MCV 97.8 FL (83-99); MONOCYTE (%) 9.7 % (3-12); MONOCYTE COUNT 0.7 K/uL (0-0.8); NEUTROPHIL COUNT 3.8 K/uL (1.8-6.4); PLATELET COUNT 181 K/uL (156-360); RBC DIS.WIDTH-CV 13.3 % (11.8-14.6); RBC DIS.WIDTH-SD 47.2 % (39-53); RED BLOOD COUNT 3.64 M/uL (3.80-5.20); WHITE BLOOD COUNT 7.2 K/uL (4.1-10.2)
[2017-03-18 17:20] VITALS: BP 150/80
[2017-03-18 20:24] VITALS: BP 102/65
[2017-03-18 23:19] VITALS: BP 107/68
[2017-03-19 07:12] LABS: CHLORIDE 103 MEQ/L (99-109); GFR ESTIMATE (CALCULATED) 21 mL/min/; GLUCOSE 135 mg/dL (70-99); POTASSIUM 4.8 MEQ/L (3.7-5.4); SODIUM 140 MEQ/L (136-147); UREA NITROGEN (BUN) 44 mg/dL (9-23)
[2017-03-19 07:13] LABS: CREATININE 2.5 MG/DL (0.6-1.3)
[2017-03-19 08:57] VITALS: BP 118/64
[2017-03-19 20:18] VITALS: BP 105/56
[2017-03-19 23:45] VITALS: BP 124/75
[2017-03-20 04:40] VITALS: BP 119/68
[2017-03-20 06:51] LABS: CHLORIDE 103 MEQ/L (99-109); CREATININE 2.9 MG/DL (0.6-1.3); GFR ESTIMATE (CALCULATED) 18 mL/min/; GLUCOSE 142 mg/dL (70-99); POTASSIUM 5.3 MEQ/L (3.7-5.4); SODIUM 138 MEQ/L (136-147); UREA NITROGEN (BUN) 52 mg/dL (9-23)
[2017-03-20 08:25] VITALS: BP 112/67
[2017-03-20 13:53] LABS: CREATINE KINASE 223 IU/L (1-294)
[2017-03-20 17:59] LABS: URIC ACID 11.6 mg/dL (3.1-9.2)
[2017-03-20 21:41] VITALS: BP 108/56
[2017-03-21 00:02] VITALS: BP 122/68
[2017-03-21 00:03] VITALS: BP 122/68
[2017-03-21 06:59] LABS: ALBUMIN 3.2 G/DL (3.2-4.8); CHLORIDE 105 MEQ/L (99-109); CREATININE 2.6 MG/DL (0.6-1.3); GFR ESTIMATE (CALCULATED) 20 mL/min/; GLUCOSE 133 mg/dL (70-99); PHOSPHORUS 4.3 mg/dL (2.5-4.9); POTASSIUM 4.7 MEQ/L (3.7-5.4); SODIUM 141 MEQ/L (136-147); UREA NITROGEN (BUN) 48 mg/dL (9-23)
[2017-03-21 08:20] VITALS: BP 118/67
[2017-03-21 09:44] LABS: URIC ACID 11.7 mg/dL (3.1-9.2)
[2017-03-21 16:23] VITALS: BP 105/66
[2017-03-21 23:35] VITALS: BP 120/73
[2017-03-22 07:36] LABS: ALBUMIN 3.2 G/DL (3.2-4.8); CHLORIDE 110 MEQ/L (99-109); GFR ESTIMATE (CALCULATED) 27 mL/min/; GLUCOSE 124 mg/dL (70-99); PHOSPHORUS 4.1 mg/dL (2.5-4.9); POTASSIUM 5.2 MEQ/L (3.7-5.4); SODIUM 142 MEQ/L (136-147); UREA NITROGEN (BUN) 43 mg/dL (9-23)
[2017-03-22 08:03] VITALS: BP 118/72
[2017-03-22 23:25] VITALS: BP 120/72
[2017-03-23 06:56] LABS: CHLORIDE 109 MEQ/L (99-109); CREATININE 1.6 MG/DL (0.6-1.3); GFR ESTIMATE (CALCULATED) 36 mL/min/; GLUCOSE 100 mg/dL (70-99); PHOSPHORUS 3.7 mg/dL (2.5-4.9); POTASSIUM 4.5 MEQ/L (3.7-5.4); SODIUM 141 MEQ/L (136-147); UREA NITROGEN (BUN) 34 mg/dL (9-23)
[2017-03-23 07:14] LABS: CHLORIDE 109 MEQ/L (99-109); CREATININE 1.6 MG/DL (0.6-1.3); GFR ESTIMATE (CALCULATED) 36 mL/min/; GLUCOSE 100 mg/dL (70-99); POTASSIUM 4.5 MEQ/L (3.7-5.4); SODIUM 141 MEQ/L (136-147); UREA NITROGEN (BUN) 34 mg/dL (9-23)
[2017-03-23 09:45] VITALS: BP 110/66
[2017-03-23 16:30] VITALS: BP 156/74
[2017-03-24 00:51] VITALS: BP 142/72
[2017-03-24 05:38] LABS: BASOPHIL (%) 0.7 % (0-1); EOSINOPHIL (%) 2.3 % (0-5); EOSINOPHIL COUNT 0.1 K/uL (0-0.3); HEMATOCRIT 32.6 % (36.0-46.0); HEMOGLOBIN 9.9 G/DL (11.9-15.5); IMMATURE GRANULOCYTE (%) 0.2 % (0.0-0.7); LYMPHOCYTE (%) 30.3 % (15-42); LYMPHOCYTE COUNT 1.3 K/uL (1.0-2.8); MCH 29.5 PG (29.0-34.0); MCHC 30.4 G/DL (30.0-36.0); MONOCYTE (%) 11.5 % (3-12); MONOCYTE COUNT 0.5 K/uL (0-0.8); NEUTROPHIL COUNT 2.4 K/uL (1.8-6.4); PLATELET COUNT 136 K/uL (156-360); RBC DIS.WIDTH-CV 13.1 % (11.8-14.6); RBC DIS.WIDTH-SD 45.6 % (39-53); RED BLOOD COUNT 3.36 M/uL (3.80-5.20); WHITE BLOOD COUNT 4.4 K/uL (4.1-10.2)
[2017-03-24 06:09] LABS: CHLORIDE 110 MEQ/L (99-109); CREATININE 1.4 MG/DL (0.6-1.3); GFR ESTIMATE (CALCULATED) 41 mL/min/; GLUCOSE 120 mg/dL (70-99); MAGNESIUM 1.7 mg/dl (1.3-2.7); POTASSIUM 4.6 MEQ/L (3.7-5.4); SODIUM 143 MEQ/L (136-147); UREA NITROGEN (BUN) 26 mg/dL (9-23)
[2017-03-24 08:36] VITALS: BP 171/78
[2017-03-24 12:55] VITALS: BP 129/61
[2017-03-24 16:51] VITALS: BP 146/76
[2017-03-24 23:43] VITALS: BP 161/73
[2017-03-25 06:07] LABS: CHLORIDE 108 MEQ/L (99-109); CREATININE 1.4 MG/DL (0.6-1.3); GFR ESTIMATE (CALCULATED) 41 mL/min/; GLUCOSE 125 mg/dL (70-99); POTASSIUM 4.4 MEQ/L (3.7-5.4); SODIUM 145 MEQ/L (136-147); UREA NITROGEN (BUN) 23 mg/dL (9-23)
[2017-03-25 08:00] VITALS: BP 144/82
[2017-03-25 12:00] VITALS: BP 148/72
[2017-03-25 15:35] VITALS: BP 144/86
[2017-03-26 02:43] VITALS: BP 172/98
[2017-03-26 06:55] LABS: BASOPHIL (%) 0.5 % (0-1); EOSINOPHIL (%) 1.9 % (0-5); EOSINOPHIL COUNT 0.1 K/uL (0-0.3); HEMATOCRIT 33.8 % (36.0-46.0); HEMOGLOBIN 10.6 G/DL (11.9-15.5); IMMATURE GRANULOCYTE (%) 0.5 % (0.0-0.7); LYMPHOCYTE (%) 29.3 % (15-42); LYMPHOCYTE COUNT 1.7 K/uL (1.0-2.8); MCH 29.6 PG (29.0-34.0); MCHC 31.4 G/DL (30.0-36.0); MCV 94.4 FL (83-99); MONOCYTE (%) 10.4 % (3-12); MONOCYTE COUNT 0.6 K/uL (0-0.8); NEUTROPHIL (%) 57.4 % (45-76); NEUTROPHIL COUNT 3.3 K/uL (1.8-6.4); PLATELET COUNT 136 K/uL (156-360); RBC DIS.WIDTH-CV 13.1 % (11.8-14.6); RBC DIS.WIDTH-SD 44.8 % (39-53); RED BLOOD COUNT 3.58 M/uL (3.80-5.20); WHITE BLOOD COUNT 5.7 K/uL (4.1-10.2)
[2017-03-26 07:20] LABS: CHLORIDE 106 MEQ/L (99-109); CREATININE 1.4 MG/DL (0.6-1.3); GFR ESTIMATE (CALCULATED) 41 mL/min/; GLUCOSE 116 mg/dL (70-99); POTASSIUM 4.3 MEQ/L (3.7-5.4); SODIUM 144 MEQ/L (136-147); UREA NITROGEN (BUN) 20 mg/dL (9-23)
[2017-03-26 07:50] VITALS: BP 163/80
[2017-03-26 16:30] VITALS: BP 126/79
[2017-03-27] VITALS: BP 148/76
[2017-03-27 07:29] VITALS: BP 124/68
[2017-03-27] MEDS ORDERED: BUDESONIDE0.5 MG/2 M AEROSOL (13:55)
[2017-03-27] MEDS ORDERED: GABAPENTIN300 MG PO (13:58)
[2017-03-27] MEDS ORDERED: OXYCODONE-APAP1 EACH PO (14:00)
[2017-03-27] MEDS ORDERED: OXYCONTIN15 MG PO (14:00)
[2017-03-27] MEDS ORDERED: Salonpas 4% Patch TD (14:00)
[2017-03-27 15:42] VITALS: BP 160/84
== END 2017-03-27 19:24 | DRG 177 ==
LOC: EME 17:27 → 4WEST 19:25 → 5SOUTH 19:25 → EDOF 19:25 → ENRESERV 19:27 → 4WEST 20:17 → ENRESERV 03-13 10:51 → 4WEST 03-13 11:11 → ENRESERV 03-13 11:47 → 4SOUTH 03-13 13:00 → ENRESERV 03-15 19:59 → 5SOUTH 03-15 21:45
PROVIDERS: Emergency Medicine; Hospitalist; Internal Medicine; Internal Medicine Critical Care Medicine; Internal Medicine Nephrology; Physician Assistant; Surgery
PROC: 5A0945Z Assistance with Respiratory Ventilation, 24-96 Consecutive Hours (ICD-10-PCS; principal; 2017-02-28)
PROC: 0B21XFZ Change Tracheostomy Device in Trachea, External Approach (ICD-10-PCS; 2017-02-28)
DX: J69.0 Pneumonitis due to inhalation of food and vomit (principal); J96.21 Acute and chronic respiratory failure with hypoxia; T17.490A Other foreign object in trachea causing asphyxiation, initial encounter; I46.9 Cardiac arrest, cause unspecified; J96.22 Acute and chronic respiratory failure with hypercapnia; G25.3 Myoclonus; N17.9 Acute kidney failure, unspecified; J95.09 Other tracheostomy complication; J44.9 Chronic obstructive pulmonary disease, unspecified; I25.10 Atherosclerotic heart disease of native coronary artery without angina pectoris; I48.0 Paroxysmal atrial fibrillation; I13.0 Hypertensive heart and chronic kidney disease with heart failure and stage 1 through stage 4 chronic kidney disease, or unspecified chronic kidney disease; K21.9 Gastro-esophageal reflux disease without esophagitis; E11.40 Type 2 diabetes mellitus with diabetic neuropathy, unspecified; E11.22 Type 2 diabetes mellitus with diabetic chronic kidney disease; E66.2 Morbid (severe) obesity with alveolar hypoventilation; E87.2 Acidosis; K92.2 Gastrointestinal hemorrhage, unspecified; S22.43XA Multiple fractures of ribs, bilateral, initial encounter for closed fracture; G89.4 Chronic pain syndrome; I87.2 Venous insufficiency (chronic) (peripheral); J98.11 Atelectasis; D69.6 Thrombocytopenia, unspecified; Z68.43 Body mass index [BMI] 50.0-59.9, adult; F41.9 Anxiety disorder, unspecified; N28.0 Ischemia and infarction of kidney; D63.8 Anemia in other chronic diseases classified elsewhere; I87.8 Other specified disorders of veins; F17.210 Nicotine dependence, cigarettes, uncomplicated; W06.XXXA Fall from bed, initial encounter; N18.9 Chronic kidney disease, unspecified; R27.8 Other lack of coordination; I50.9 Heart failure, unspecified; K43.9 Ventral hernia without obstruction or gangrene; M79.7 Fibromyalgia; Z86.718 Personal history of other venous thrombosis and embolism; Z91.19 Patient's noncompliance with other medical treatment and regimen; Z87.01 Personal history of pneumonia (recurrent); Z86.711 Personal history of pulmonary embolism; Z90.49 Acquired absence of other specified parts of digestive tract; Z99.81 Dependence on supplemental oxygen; Z79.84 Long term (current) use of oral hypoglycemic drugs; I25.2 Old myocardial infarction; Z79.01 Long term (current) use of anticoagulants; Z79.899 Other long term (current) drug therapy; Z88.0 Allergy status to penicillin; Z82.49 Family history of ischemic heart disease and other diseases of the circulatory system; Z91.041 Radiographic dye allergy status; N18.4 Chronic kidney disease, stage 4 (severe); Z79.4 Long term (current) use of insulin; G93.1 Anoxic brain damage, not elsewhere classified; E86.9 Volume depletion, unspecified
CPT/HCPCS: 36600; 70450; 71045; 71046; 71275; 74177; 74230; 76770; 80048; 80048 91; 80053; 80069; 81003; 82330; 82550; 82570; 82803; 82948; 83036; 83605; 83735; 84100; 84156; 84300; 84484; 84550; 85025; 85025 91; 85027; 85610; 85730; 87070; 87077; 87086; 87186; 87205; 87641; 92526 GN; 92610 GN; 92611 GN; 93005; 94002; 94003; 94010; 94640; 94640 76; 94667; 94668; 94760; 94799; 97530 GO; 97530 GP; 99281; 99285; J0171; J0696; J1170; J1815; J1956; J2250; J2310; J2405; J3010; J7030; J7040; J7509; S0028

== ENCOUNTER 2017-06-29 15:18 | Emergency (ER) | payer OTHER ==
[~2017-06-29] VITALS: Ht 167.6 cm; Wt 132.4 kg
[~2017-06-29 15:18] MED LIST changes: +BUDESONIDE0.5 MG/2 M AEROSOL; +GABAPENTIN300 MG PO; +OXYCODONE-APAP1 EACH PO; +OXYCONTIN15 MG PO; +Salonpas 4% Patch TD
[2017-06-29 16:19] LABS: HEMATOCRIT 37.2 % (36.0-46.0); HEMOGLOBIN 11.9 G/DL (11.9-15.5); MCH 30.2 PG (29.0-34.0); MCV 94.4 FL (83-99); PLATELET COUNT 147 K/uL (156-360); RBC DIS.WIDTH-CV 11.9 % (11.8-14.6); RBC DIS.WIDTH-SD 41.5 % (39-53); RED BLOOD COUNT 3.94 M/uL (3.80-5.20); WHITE BLOOD COUNT 7.4 K/uL (4.1-10.2)
[2017-06-29 16:41] LABS: CHLORIDE 107 mEq/L (99-109); POTASSIUM 4.7 mEq/L (3.7-5.4); SODIUM 141 mEq/L (136-147)
[2017-06-29 16:43] LABS: GLUCOSE 148 mg/dL (70-99); TOTAL PROTEIN 6.8 g/dL (6.4-8.3)
[2017-06-29 16:45] LABS: TOTAL BILIRUBIN 0.4 mg/dL (0.0-1.0); TROP-I INTERPRETATION NEGATIVE; TROPONIN-I 0.01 ng/mL (0.0-0.30)
[2017-06-29 16:47] LABS: ALKALINE PHOSPHATASE 115 IU/L (3-129); CREATININE 1.1 mg/dL (0.6-1.3); GFR ESTIMATE (CALCULATED) 55 mL/min/
[2017-06-29 16:48] LABS: AST (GOT) 11 IU/L (2-34); UREA NITROGEN (BUN) 27 mg/dL (9-23)
[2017-06-29 16:50] LABS: ALT (GPT) 9 IU/L (3-49)
[2017-06-29] MEDS ORDERED: PREDNISONE20 MG PO (17:22)
[2017-06-29] MEDS ORDERED: ZITHROMAX250 MG PO (17:22)
[2017-06-29 17:47] VITALS: BP 106/64
== END 2017-06-29 17:56 | disposition home or self-care (01) ==
LOC: EME 15:18
PROVIDERS: Emergency Medicine Emergency Medical Services
DX: J18.9 Pneumonia, unspecified organism (principal); J44.0 Chronic obstructive pulmonary disease with (acute) lower respiratory infection; J44.1 Chronic obstructive pulmonary disease with (acute) exacerbation; R06.03 Acute respiratory distress; I11.0 Hypertensive heart disease with heart failure; I50.9 Heart failure, unspecified; K21.9 Gastro-esophageal reflux disease without esophagitis; E11.40 Type 2 diabetes mellitus with diabetic neuropathy, unspecified; I25.2 Old myocardial infarction; F41.9 Anxiety disorder, unspecified; F32.9 Major depressive disorder, single episode, unspecified; Z90.49 Acquired absence of other specified parts of digestive tract; Z87.891 Personal history of nicotine dependence; Z88.0 Allergy status to penicillin; Z88.1 Allergy status to other antibiotic agents; Z79.82 Long term (current) use of aspirin; Z79.01 Long term (current) use of anticoagulants
CPT/HCPCS: 71045; 80053; 83880; 84484; 85027; 94640; 99281; 99284; J7512